=== PATIENT | male | born 1945 | race Caucasian/White ===

== ENCOUNTER 2017-12-30 11:37 | Emergency (ER) | payer MEDICARE, BC ==
[~2017-12-30] VITALS: Ht 647.4 cm; Wt 94.0 kg
[~2017-12-30 11:37] MED LIST: ALFU10TA10 PO; ASPI81TA52 PO; ATOR10TA87 PO; CARV-50 PO; CELE-193 PO; CHOL200035 PO; CLOP75TA33 PO; DONE-46 PO; DULO60CA34 PO; ESCI10TA54 PO; FLO0.4C PO; GLIM1TAB46 PO; ISOS60TA4 PO; LACT1CAP65 PO; LISI-232 PO; METF500T PO; OMEG1CAP54 PO
[2017-12-30] MEDS ORDERED: ondansetron/PF 4mg/2ml inj IV ONE (13:45)
[2017-12-30] MEDS ORDERED: normal saline 1000ML IV soln IVB ONE (13:45)
[2017-12-30 14:04] LABS: BASOPHILS # (AUTO) 0.1 X10'3 (0-0.2); BASOPHILS % (AUTO) 0.5 % (0-1); EOSINOPHILS % (AUTO) 0.2 % (0-6); HEMATOCRIT 43.9 % (42.0-52.0); HEMOGLOBIN 14.8 g/dl (14.0-17.9); LYMPHOCYTES # (AUTO) 1.4 X10'3 (1.1-4.8); LYMPHOCYTES % (AUTO) 12.3 % (21-51); MEAN CORPUSCULAR HEMOGLOBIN 29.6 PG (27.0-31.0); MEAN CORPUSCULAR HGB CONC 33.7 % (33.0-36.5); MEAN CORPUSCULAR VOLUME 87.7 FL (78-98); MEAN PLATELET VOLUME 11.9 FL (7.4-10.4); MONOCYTES # (AUTO) 0.4 X10'3 (0-0.9); MONOCYTES % (AUTO) 3.4 % (2-12); NEUTROPHILS # (AUTO) 9.4 X10'3 (1.8-7.7); NEUTROPHILS % (AUTO) 83.6 % (42-75); PLATELET COUNT 113 X10'3 (140-440); RED CELL DISTRIBUTION WIDTH 12.1 % (11.5-14.5); WHITE BLOOD COUNT 11.2 X10'3 (4.5-11.0)
[2017-12-30 14:16] LABS: LARGE PLATELETS FEW; PLATELET ESTIMATE DECREASED
[2017-12-30 14:18] LABS: ALANINE AMINOTRANSFERASE 18 U/L (12-78); ALBUMIN 3.4 G/DL (3.4-5.0); ALBUMIN/GLOBULIN RATIO 0.8 (1.1-1.5); ALKALINE PHOSPHATASE 100 IU/L (46-116); ANION GAP 11 (8-16); ASPARTATE AMINO TRANSFERASE 10 U/L (10-37); BILIRUBIN,TOTAL 0.6 MG/DL (0.1-1.0); BLOOD UREA NITROGEN 40 MG/DL (7-18); CALCIUM 10.5 MG/DL (8.5-10.1); CHLORIDE 96 MMOL/L (99-107); CREATININE 1.74 MG/DL (0.60-1.10); GLUCOSE 375 MG/DL (70-104); POTASSIUM 4.1 MMOL/L (3.5-5.1); SODIUM 135 MMOL/L (135-145); TOTAL CARBON DIOXIDE 28.2 MMOL/L (24-32); TOTAL PROTEIN 7.5 G/DL (6.4-8.2); eGFR 39 ML/MIN
[2017-12-30 14:21] LABS: TROPONIN I < 0.04 NG/ML (0.0-0.05)
[2017-12-30] MEDS ORDERED: insulin regular, human 10 units/0.1 ml syringe IV ONE (14:25)
[2017-12-30 15:36] LABS: CLARITY,URINE SLIGHTLY CLOUDY (Clear); COLOR,URINE YELLOW (Yellow); GLUCOSE, URINE >=1000 mg/dl (Neg); KETONES,URINE 15 mg/dl (Neg); LEUKOCYTE ESTERASE ,URINE NEGATIVE (Neg); NITRITES, URINE NEGATIVE (Neg); OCCULT BLOOD,URINE MODERATE (Neg); PROTEIN,URINE 100 mg/dl (Neg); UROBILINOGEN,URINE 0.2 E.U/dL (0.2-1.0)
[2017-12-30 15:51] LABS: UA COLLECTION TYPE STRAIGHT CATH
[2017-12-30 15:56] LABS: BACTERIA,URINE NONE SEEN /HPF (Neg); SQUAMOUS EPITHELIAL CELL,UR NONE SEEN /LPF (FEW)
[2017-12-30 15:57] LABS: AMORPHOUS URATES 2+
[2017-12-30 16:16] VITALS: BP 165/74
== END 2017-12-30 16:19 | disposition home or self-care (01) ==
LOC: ER 11:38
DX: E11.65 Type 2 diabetes mellitus with hyperglycemia (principal); I10 Essential (primary) hypertension; Z90.89 Acquired absence of other organs; Z79.82 Long term (current) use of aspirin; Z79.84 Long term (current) use of oral hypoglycemic drugs; Z79.899 Other long term (current) drug therapy
CPT/HCPCS: 36415; 80053; 81001; 82948; 84484; 85025; 87088; 93005; 96361; 96374; 96375; 99285; A4353; J1815; J2405; J7030

== ENCOUNTER 2019-05-26 07:02 | Day surgery (SDC) | payer MEDICARE, BC ==
[2019-05-25 14:15] LABS: BASOPHILS % (AUTO) 0.5 % (0-1); EOSINOPHILS # (AUTO) 0.1 X10'3 (0-0.9); EOSINOPHILS % (AUTO) 1.3 % (0-6); HEMATOCRIT 41.2 % (42.0-52.0); HEMOGLOBIN 13.7 g/dl (14.0-17.9); LYMPHOCYTES % (AUTO) 14.1 % (21-51); MEAN CORPUSCULAR HGB CONC 33.2 g/dL (33.0-36.5); MEAN CORPUSCULAR VOLUME 90.3 FL (78-98); MEAN PLATELET VOLUME 10.6 FL (7.4-10.4); MONOCYTES # (AUTO) 0.3 X10'3 (0-0.9); MONOCYTES % (AUTO) 4.3 % (2-12); NEUTROPHILS # (AUTO) 5.9 X10'3 (1.8-7.7); NEUTROPHILS % (AUTO) 79.8 % (42-75); PLATELET COUNT 131 X10'3 (140-440); RED BLOOD COUNT 4.56 X10'6 (4.70-6.10); RED CELL DISTRIBUTION WIDTH 14.4 % (11.5-14.5); WHITE BLOOD COUNT 7.4 X10'3 (4.5-11.0)
[2019-05-25 14:28] LABS: PARTIAL THROMBOPLASTIN TIME 24 SECONDS (22-32)
[2019-05-25 14:32] LABS: ALBUMIN 3.4 G/DL (3.4-5.0); ANION GAP 6 (8-16); BLOOD UREA NITROGEN 35 MG/DL (7-18); BUN/CREATININE RATIO 19.3 (5.4-32.0); CALCIUM 9.7 MG/DL (8.5-10.1); CHLORIDE 101 MMOL/L (99-107); CREATININE 1.81 MG/DL (0.60-1.10); GLUCOSE 331 MG/DL (70-104); POTASSIUM 4.1 MMOL/L (3.5-5.1); SODIUM 138 MMOL/L (135-145); TOTAL CARBON DIOXIDE 30.6 MMOL/L (24-32); eGFR 37 ML/MIN
[~2019-05-26] VITALS: Ht 182.9 cm; Wt 96.7 kg
[2019-05-26] VITALS (13 sets, daily range): BP systolic 143–185; BP diastolic 49–95
[~2019-05-26 07:02] MED LIST changes: +GLIM1TAB3 PO; -GLIM1TAB46 PO
[2019-05-26] MEDS ORDERED: diphenhydrAMINE 25mg capsule PO PRN (07:30)
[2019-05-26] MEDS ORDERED: normal saline 1,000 ML IV SCH (07:30)
[2019-05-26] MEDS ORDERED: LORazepam 0.5 MG tablet PO PRN (07:30)
[2019-05-26] MEDS ORDERED: LIDOcaine/PRILOcaine 5gm cream TP ONE (07:40)
[2019-05-26] MEDS ORDERED: AMLO5TAB PO (07:50)
[2019-05-26] MEDS ORDERED: PRIM50TA3 PO (07:50)
[2019-05-26] MEDS ORDERED: BUPR-83 PO (07:50)
[2019-05-26] MEDS ORDERED: HYDR12.55 PO (07:50)
[2019-05-26] MEDS ORDERED: ALLO300T8 PEG (07:50)
[2019-05-26] MEDS ORDERED: LISI40TA4 PO (07:50)
[2019-05-26] MEDS ORDERED: sodium bicarbonate (8.4%) inj. 100 ML in dextrose 5%-water 1,000 ML IV ONE ×2 (08:30→13:20)
[2019-05-26] MEDS ORDERED: nitroGLYCERIN-Tridil 50MG/D5W 250 ML IV ONE (09:40)
[2019-05-26] MEDS ORDERED: fentaNYL/PF 50MCG/1 ML 2ML syringe ONE (09:40)
[2019-05-26] MEDS ORDERED: verapamil 2.5 mg/ml inj IV ONE (09:40)
[2019-05-26] MEDS ORDERED: midazolam 2 mg/2 ml injection ONE (09:40)
[2019-05-26] MEDS ORDERED: LIDOcaine 1% (10mg/ml)w/preservative injection 20ml MDV ONE (09:40)
[2019-05-26] MEDS ORDERED: iohexol 350 MG/ML 50ML vial IV ONE (09:41)
[2019-05-26] MEDS ORDERED: heparin 1,000unit/ml 10ml vial 10 ML ONE (09:41)
[2019-05-26] MEDS ORDERED: iohexol 350MG/ML 100ml bottle IV ONE ×2 (09:41→10:56)
[2019-05-26] MEDS ORDERED: heparin 1,000 UNITS/NS 500ml 500 ML ONE (10:56)
[2019-05-26] MEDS ORDERED: PRAV20TA4 (11:54)
[2019-05-26] MEDS ORDERED: ACETYLCYSTEINE 200 MG/1 ML 4 ML ORAL SOLUTION PO SCH ×2 (12:07→20:00)
--- NOTE | 2019-05-26 14:25 | NUR ---
mended hearts at bedside.
[2019-05-26] MEDS ORDERED: MALTODEXTRIN/FRUCTOSE 0.68 KCAL/ML LIQUID 296ML BOTTLE PO ONE (15:10)
--- NOTE | 2019-05-26 15:55 | NUR ---
Received report from TYRA Lion from [facility]. Patient recovering from heart cath. Will await patient arrival to the ACCE unit.
[2019-05-26 16:01] LABS: ISTAT HGB ART 12.6 g/dl (14.0-18.0); ISTAT Hct ART 37 %PCV (42-52); ISTAT Hct MIX 37 %PCV (42-52); ISTAT O2 SATURATION ARTERIAL 96 % (95-98); ISTAT O2 SATURATION MIX VENOUS 70 % (60-80); ISTAT SOURCE ART; ISTAT SOURCE MIX
--- NOTE | 2019-05-26 16:10 | NUR ---
Senior [employer] SpecialistDanni at bedside. Pt being given information that he will need to return on Friday for outpatient surgery and that if any symptoms arise to come into the ED. Pt verbalized understanding.
--- NOTE | 2019-05-26 18:17 | NUR ---
Problems reprioritized. Patient report given, questions answered & plan of care reviewed with Elvira MARY.
[2019-05-26 19:10] LABS: ABG BASE EXCESS -0.8 mmol/L (-2.0-3.0); ABG HCO3 22.9 mmol/L (22.0-26.0); ABG OXYGEN SATURATION 95.4 % (95-98); ABG PCO2 (T) 34.9 mmHg (35.0-45.0); ABG PH (T) 7.435 (7.350-7.450); ABG PO2 (T) 73.1 mmHg (83-108); ALLEN'S TEST Positive; FCOHb 0.6 % (0.5-1.5); FMetHb 0.1 % (0.3-1.12); FO2Hb 94.7 % (94-100); RESPIRATORY RATE (OBSERVED) 14 b/min; TOTAL HEMOGLOBIN 13.5 G/dl (14.0-17.9)
[2019-05-31] MEDS ORDERED: MALTODEXTRIN/FRUCTOSE 0.68 KCAL/ML LIQUID 296ML BOTTLE PO ONE (05:30)
[2019-05-31] MEDS ORDERED: insulin regular, human 100 UNIT in normal saline 100ml IV soln 100 ML IV SCH ×2 (05:30)
[2019-05-31] MEDS ORDERED: MESSAGE TO NURSING PO ONE ×5 (05:30→10:00)
[2019-05-31] MEDS ORDERED: gabapentin 400mg capsule PO ONE (05:30)
[2019-05-31] MEDS ORDERED: insulin glargine (Lantus) pen - multi-dose SQ PRN (05:30)
[2019-05-31] MEDS ORDERED: potassium Cl 20mEq/100mL bag 100 ML IV PRN (05:30)
[2019-05-31] MEDS ORDERED: metoprolol tartrate 12.5mg (1/2 tablet) PO SCH (05:30)
[2019-05-31] MEDS ORDERED: magnesium 2GM in 50ml NS 50 ML IV PRN (05:30)
[2019-05-31] MEDS ORDERED: magnesium 4gm in 100ml NS 100 ML IV PRN (05:30)
[2019-05-31] MEDS ORDERED: potassium Cl 20 mEq SR tablet PO PRN (05:30)
[2019-05-31] MEDS ORDERED: dextrose 50%-water 50ml dispensing syringe IV PRN (05:30)
[2019-05-31] MEDS ORDERED: mupirocin 2% nasal ointment 1gm UD NS SCH (20:00)
== END 2019-05-26 19:51 | disposition home or self-care (01) ==
LOC: SSTAY O 07:02
PROVIDERS: ATTEND Internal Medicine Cardiovascular Disease
DX: R94.39 Abnormal result of other cardiovascular function study (principal); I25.10 Atherosclerotic heart disease of native coronary artery without angina pectoris; I10 Essential (primary) hypertension; E11.9 Type 2 diabetes mellitus without complications; G47.33 Obstructive sleep apnea (adult) (pediatric); E78.49 Other hyperlipidemia; M19.90 Unspecified osteoarthritis, unspecified site; E66.9 Obesity, unspecified; Z68.28 Body mass index [BMI] 28.0-28.9, adult; Z79.84 Long term (current) use of oral hypoglycemic drugs; Z79.01 Long term (current) use of anticoagulants; Z79.82 Long term (current) use of aspirin; Z95.5 Presence of coronary angioplasty implant and graft; Z79.899 Other long term (current) drug therapy; Z86.73 Personal history of transient ischemic attack (TIA), and cerebral infarction without residual deficits; Z98.890 Other specified postprocedural states; Z87.891 Personal history of nicotine dependence; Z83.3 Family history of diabetes mellitus; Z82.3 Family history of stroke; Z80.42 Family history of malignant neoplasm of prostate
CPT/HCPCS: 36415; 71046; 80048; 82803; 82948; 85014; 85018; 85025; 85610; 85730; 93005; 93460; 94010; 99152; 99153; C1769; C1894; J1644; J2001; J2250; J3010; Q0163; Q9967; 36600; 93880; 93971; A5120; A6258; C1760; J3490; J7030

== ENCOUNTER 2019-05-31 05:36 | Inpatient (IN) | payer MEDICARE, BC ==
[2019-05-28 15:41] LABS: BASOPHILS % (AUTO) 0.5 % (0-1); EOSINOPHILS # (AUTO) 0.1 X10'3 (0-0.9); LYMPHOCYTES # (AUTO) 1.2 X10'3 (1.1-4.8); LYMPHOCYTES % (AUTO) 16.2 % (21-51); MEAN CORPUSCULAR HEMOGLOBIN 30.2 PG (27.0-31.0); MEAN CORPUSCULAR HGB CONC 33.1 g/dL (33.0-36.5); MEAN PLATELET VOLUME 10.7 FL (7.4-10.4); MONOCYTES # (AUTO) 0.4 X10'3 (0-0.9); NEUTROPHILS # (AUTO) 5.8 X10'3 (1.8-7.7); NEUTROPHILS % (AUTO) 77.3 % (42-75); PRE OP HEMATOCRIT 41.2 % (42.0-52.0); PRE OP HEMOGLOBIN 13.7 g/dL (14.0-17.9); PRE OP PLATELET COUNT 136 X10'3 (140-440); RED BLOOD COUNT 4.53 X10'6 (4.70-6.10); RED CELL DISTRIBUTION WIDTH 14.6 % (11.5-14.5)
[2019-05-28 15:55] LABS: PRE OP PROTIME 10.2 SECONDS (9.0-12.0)
[2019-05-28 15:56] LABS: ALBUMIN 3.3 G/DL (3.4-5.0); ALBUMIN/GLOBULIN RATIO 0.9 (1.1-1.5); ALKALINE PHOSPHATASE 93 IU/L (46-116); BLOOD UREA NITROGEN 30 MG/DL (7-18); BUN/CREATININE RATIO 14.9 (5.4-32.0); CALCIUM 9.1 MG/DL (8.5-10.1); CHLORIDE 101 MMOL/L (99-107); CREATININE 2.02 MG/DL (0.60-1.10); PRE OP ALT 19 U/L (30-65); PRE OP ANION GAP 14 (8-16); PRE OP AST 11 U/L (10-37); PRE OP BILIRUB, TOTAL 0.4 MG/DL (0.0-1.0); PRE OP POTASSIUM 3.4 MMOL/L (3.4-5.1); PRE OP SODIUM 141 MMOL/L (135-145); TOTAL CARBON DIOXIDE 26.2 MMOL/L (24-32); TOTAL PROTEIN 6.8 G/DL (6.4-8.2); eGFR 32 ML/MIN
[2019-05-28 16:01] LABS: LARGE PLATELETS FEW; PLATELET ESTIMATE DECREASED
[2019-05-28 16:03] LABS: HEMOGLOBIN A1C 7.2 % (4.5-6.2)
[2019-05-28 16:04] LABS: PRE OP GLUCOSE 367 MG/DL (70-104)
[2019-05-31] VITALS (18 sets, daily range): BP systolic 101–133; BP diastolic 51–78
[~2019-05-31] VITALS: Ht 182.9 cm; Wt 103.5 kg
[~2019-05-31 05:36] MED LIST changes: +ALLO300T8 PEG; +AMLO5TAB PO; -ATOR10TA87 PO; +BUPR-83 PO; -CELE-193 PO; -CHOL200035 PO; +DOCUMENT DATE & TIME OF BETA-BLOCKER PO ONE; -DONE-46 PO; -ESCI10TA54 PO; -FLO0.4C PO; +HYDR12.55 PO; -LACT1CAP65 PO; -LISI-232 PO; +LISI40TA4 PO; +MALTODEXTRIN/FRUCTOSE 0.68 KCAL/ML LIQUID 296ML BOTTLE PO ONE; -OMEG1CAP54 PO; +PRAV20TA4; +PRIM50TA3 PO; +ROPIVAcaine 0.5% (5mg/ml) 30ml vial ONE; +albumin (human) 25% 100 ML IV solution IV ONE; +aminocaproic acid 250 MG/1 ML inj. ONE; +cefazolin/dext.iso 2gm/100ml 100 ML IV ONE; +famotidine 10mg tablet PO ONE; +gabapentin 300mg capsule PO ONE; +heparin 10,000 units/1 ML INJ ONE; +insulin regular, human 100 UNIT in normal saline 100ml IV soln 99 ML IV ONE; +metoprolol tartrate 12.5mg (1/2 tablet) PO ONE; +mupirocin 2% nasal ointment 1gm UD NS ONE; +ringers solution, lacted 1,000 ML IV SCH; +vancomycin inj 1,500 MG in normal saline 300ml IV soln IV ONE
[2019-05-31] MEDS ORDERED: LORazepam 2 mg/ml vial IV PRN (06:50)
[2019-05-31] MEDS ORDERED: MIDAZolam 1mg/ml 10ml vial ONE (06:53)
[2019-05-31] MEDS ORDERED: SUFENTANIL CITRATE 50 MCG/ML 2ml ampule IV ONE (06:53)
[2019-05-31] MEDS ORDERED: nitroGLYCERIN in D5W 50mg/250ml (Tridil) infusion IV ONE (06:55)
[2019-05-31] MEDS ORDERED: protamine sulf. 10mg/ml inj. IV ONE (06:55)
[2019-05-31] MEDS ORDERED: phenylephrine 10mg/ml inj. ONE (06:55)
[2019-05-31] MEDS ORDERED: LIDOcaine 2% (20mg/ml) 5ml vial ONE (06:55)
[2019-05-31] MEDS ORDERED: propofol inj 20 ML IV ONE (06:55)
[2019-05-31] MEDS ORDERED: DOPamine/D5W 400mg/250ml bag IV ONE (06:55)
[2019-05-31] MEDS ORDERED: sevoflurane 250ml liquid IH ONE (06:55)
[2019-05-31] MEDS ORDERED: aminocaproic acid 250 MG/1 ML inj. ONE (06:55)
[2019-05-31] MEDS ORDERED: pancuronium br 1mg/ml inj IV ONE (06:56)
[2019-05-31] MEDS ORDERED: papaverine 30 mg/ml 2ml inj. IA ONE (07:00)
[2019-05-31] MEDS ORDERED: heparin 10,000 units/1 ML INJ IR ONE (07:00)
[2019-05-31 07:50] LABS: ABG BASE EXCESS -2.4 mmol/L (-2.0-3.0); ABG HCO3 22.1 mmol/L (22.0-26.0); ABG OXYGEN SATURATION 99.5 % (95-98); ABG PCO2 36.8 mmHg (35.0-45.0); ABG PH 7.396 (7.350-7.450); ABG PO2 282.5 mmHg (60.0-100.0); CL (ABG) 105 mmol/L (99-107); FCOHb 0.7 % (0.5-1.5); FMetHb 0.1 % (0.3-1.12); FO2Hb 98.7 % (94-100); GLUCOSE (ABG) 260 mg/dl (70-104); IONIZED CA (ABG) 1.13 mmol/L (1.03-1.32); K (ABG) 3.4 mmol/L (3.3-5.1); NA (ABG) 135 mmol/L (135-145); TOTAL HEMOGLOBIN 11.1 G/dl (14.0-17.9)
[2019-05-31] MEDS ORDERED: albumin (Human) 5% 250ml 250 ML IV ONE ×2 (08:00→08:31)
[2019-05-31] MEDS ORDERED: ePHEDrine 50MG/ML INJ. ONE (08:21)
[2019-05-31 09:06] LABS: ABG BASE EXCESS -0.3 mmol/L (-2.0-3.0); ABG HCO3 24.6 mmol/L (22.0-26.0); ABG OXYGEN SATURATION 99.2 % (95-98); ABG PCO2 41.4 mmHg (35.0-45.0); ABG PH 7.392 (7.350-7.450); ABG PO2 259.5 mmHg (60.0-100.0); CL (ABG) 103 mmol/L (99-107); FCOHb 0.5 % (0.5-1.5); FMetHb 0.5 % (0.3-1.12); FO2Hb 98.2 % (94-100); GLUCOSE (ABG) 152 mg/dl (70-104); IONIZED CA (ABG) 1.06 mmol/L (1.03-1.32); K (ABG) 3.9 mmol/L (3.3-5.1); NA (ABG) 135 mmol/L (135-145); TOTAL HEMOGLOBIN 8.5 G/dl (14.0-17.9)
[2019-05-31 09:06] LABS: ACT @ 1.70 U 289 SEC (193-297); ACT @ 2.84 U 398 SEC (260-420); BASELINE ACT 142 SEC (101-148); PATIENT WEIGHT 97.0k KG
[2019-05-31 09:25] LABS: ABG BASE EXCESS VENOUS -1.3 mmol/L; ABG HCO3 VENOUS 23.8 mmol/L; ABG PCO2 VENOUS 41.7 mmHg; ABG PO2 VENOUS 48.5 mmHg; CL (ABG) 103 mmol/L (99-107); FCOHb VENOUS 0.9 %; FHHb VENOUS 13.1 %; FMetHb VENOUS 0.4 %; FO2Hb VENOUS 85.6 %; GLUCOSE (ABG) 138 mg/dl (70-104); K (ABG) 3.9 mmol/L (3.3-5.1); NA (ABG) 135 mmol/L (135-145); TOTAL HEMOGLOBIN 8.5 G/dl (14.0-17.9)
[2019-05-31 10:01] LABS: ABG BASE EXCESS 0.6 mmol/L (-2.0-3.0); ABG HCO3 24.2 mmol/L (22.0-26.0); ABG OXYGEN SATURATION 99.5 % (95-98); ABG PCO2 34.7 mmHg (35.0-45.0); ABG PH 7.462 (7.350-7.450); ABG PO2 365.4 mmHg (60.0-100.0); CL (ABG) 104 mmol/L (99-107); FMetHb 0.3 % (0.3-1.12); FO2Hb 98.2 % (94-100); GLUCOSE (ABG) 111 mg/dl (70-104); K (ABG) 4.1 mmol/L (3.3-5.1); NA (ABG) 135 mmol/L (135-145); TOTAL HEMOGLOBIN 8.1 G/dl (14.0-17.9)
[2019-05-31 10:25] LABS: ABG BASE EXCESS VENOUS 0.2 mmol/L; ABG HCO3 VENOUS 24.1 mmol/L; ABG PCO2 VENOUS 36.2 mmHg; ABG PO2 VENOUS 39.9 mmHg; CL (ABG) 104 mmol/L (99-107); FCOHb VENOUS 1.3 %; FHHb VENOUS 19.2 %; FMetHb VENOUS 0.2 %; FO2Hb VENOUS 79.3 %; GLUCOSE (ABG) 103 mg/dl (70-104); IONIZED CA (ABG) 1.24 mmol/L (1.03-1.32); K (ABG) 3.8 mmol/L (3.3-5.1); NA (ABG) 135 mmol/L (135-145)
[2019-05-31 10:30] LABS: ACTIVATED CLOTTING TIME 143 SEC (101-148)
[2019-05-31] MEDS ORDERED: metoclopramide 5 mg/ml inj IV PRN (11:00)
[2019-05-31] MEDS ORDERED: potassium Cl 20 mEq SR tablet PO PRN (11:00)
[2019-05-31] MEDS ORDERED: dextrose 50%-water 50ml dispensing syringe IV PRN (11:00)
[2019-05-31] MEDS ORDERED: sodium phosphate inj. 30 MMOL in dextrose 5%-water 250 ML IV PRN (11:00)
[2019-05-31] MEDS ORDERED: Neutra Phos packet PO PRN (11:00)
[2019-05-31] MEDS ORDERED: magnesium 4gm in 100ml NS 100 ML IV PRN (11:00)
[2019-05-31] MEDS ORDERED: pantoprazole 40 MG vial IV ONE (11:00)
[2019-05-31] MEDS ORDERED: niCARDipine-NS 40mg/200ml IVPB 200 ML IV PRN (11:00)
[2019-05-31] MEDS ORDERED: albumin (Human) 5% 250ml 250 ML IV PRN (11:00)
[2019-05-31] MEDS ORDERED: HYDROcodone/acetaminophen 10/325mg tab PO PRN ×2 (11:00)
[2019-05-31] MEDS ORDERED: morphine 4 MG/ML inj SYRINge IV PRN ×2 (11:00)
[2019-05-31] MEDS ORDERED: nitroGLYCERIN-Tridil 50MG/D5W 250 ML IV PRN (11:00)
[2019-05-31] MEDS ORDERED: insulin regular, human inj. 100 UNITS in normal saline 100ml IV soln 100 ML IV SCH ×2 (11:00)
[2019-05-31] MEDS ORDERED: normal saline 250ml IV soln 250 ML IV PRN (11:00)
[2019-05-31] MEDS ORDERED: sodium chloride 0.45% 1,000 ML IV SCH (11:00)
[2019-05-31] MEDS ORDERED: magnesium 2GM in 50ml NS 50 ML IV PRN (11:00)
[2019-05-31] MEDS ORDERED: DOPamine 400mg/D5W 250ml 250 ML IV PRN (11:00)
[2019-05-31] MEDS ORDERED: sodium phosphate inj. 15 MMOL in dextrose 5%-water 150 ML IV PRN (11:00)
[2019-05-31] MEDS ORDERED: ondansetron/PF 4mg/2ml inj IV PRN (11:00)
[2019-05-31] MEDS ORDERED: magnesium hydroxide 30ml (MOM) UD suspension PO PRN (11:00)
[2019-05-31] MEDS ORDERED: acetaminophen 325mg tablet PO PRN ×2 (11:00)
--- NOTE | 2019-05-31 11:10 | NUR ---
Received to room 2040, accompanied by Dr. Martinez and surgical crew. Assumed care of pt. with Nery Ashley RN. Placed on ventilator, to cooker process cheese, arterial line and PA line pressure monitored. Chest tubes to suction at 20 cm. Severino cath to gravity drainage. Dressings are dry and intact. See assessment record. All vasoactive drugs are infusing via central line.
--- NOTE | 2019-05-31 11:15 | NUR ---
DM/CABG consults: Pt to OR today for cardiac revascularization. Hx DM A1C 7.2. Will need DM/CABG eds once stable post-op prior to d/c. Addendum: 05/31/19 at [address] Amended: Links added.
[2019-05-31 11:33] LABS: BASOPHILS % (AUTO) 0.5 % (0-1); EOSINOPHILS # (AUTO) 0.1 X10'3 (0-0.9); EOSINOPHILS % (AUTO) 1.1 % (0-6); HEMOGLOBIN 10.2 g/dl (14.0-17.9); LYMPHOCYTES # (AUTO) 1.2 X10'3 (1.1-4.8); LYMPHOCYTES % (AUTO) 13.3 % (21-51); MEAN CORPUSCULAR HEMOGLOBIN 30.8 PG (27.0-31.0); MEAN CORPUSCULAR HGB CONC 34.1 g/dL (33.0-36.5); MEAN CORPUSCULAR VOLUME 90.4 FL (78-98); MONOCYTES # (AUTO) 0.4 X10'3 (0-0.9); MONOCYTES % (AUTO) 4.2 % (2-12); NEUTROPHILS # (AUTO) 7.3 X10'3 (1.8-7.7); NEUTROPHILS % (AUTO) 80.9 % (42-75); PLATELET COUNT 86 X10'3 (140-440); RED BLOOD COUNT 3.32 X10'6 (4.70-6.10); RED CELL DISTRIBUTION WIDTH 13.9 % (11.5-14.5)
[2019-05-31 11:46] LABS: PARTIAL THROMBOPLASTIN TIME 58 SECONDS (22-32)
[2019-05-31 11:46] LABS: ABG BASE EXCESS -2.3 mmol/L (-2.0-3.0); ABG HCO3 21.2 mmol/L (22.0-26.0); ABG OXYGEN SATURATION 98.5 % (95-98); ABG PCO2 (T) 29.9 mmHg (35.0-45.0); ABG PH (T) 7.463 (7.350-7.450); ABG PO2 (T) 141.1 mmHg (83-108); FCOHb 0.3 % (0.5-1.5); FLOW 60 L/min; FMetHb 0.2 % (0.3-1.12); MINUTE VOLUME 9 L/min; PATIENT TEMPERATURE 35.2; PEEP 5 cm H2O; RESPIRATORY RATE 14 b/min; RESPIRATORY RATE (OBSERVED) 14 b/min; TIDAL VOLUME 650 mL; TOTAL HEMOGLOBIN 11.3 G/dl (14.0-17.9)
[2019-05-31 11:48] LABS: ALANINE AMINOTRANSFERASE 19 U/L (12-78); ALBUMIN/GLOBULIN RATIO 1.4 (1.1-1.5); ALKALINE PHOSPHATASE 59 IU/L (46-116); ANION GAP 6 (8-16); ASPARTATE AMINO TRANSFERASE 24 U/L (10-37); BILIRUBIN,TOTAL 0.6 MG/DL (0.1-1.0); BLOOD UREA NITROGEN 25 MG/DL (7-18); BUN/CREATININE RATIO 18.4 (5.4-32.0); CALCIUM 8.4 MG/DL (8.5-10.1); CHLORIDE 108 MMOL/L (99-107); CREATININE 1.36 MG/DL (0.60-1.10); GLUCOSE 107 MG/DL (70-104); POTASSIUM 3.7 MMOL/L (3.5-5.1); SODIUM 141 MMOL/L (135-145); TOTAL CARBON DIOXIDE 26.6 MMOL/L (24-32); TOTAL PROTEIN 5.1 G/DL (6.4-8.2); eGFR 51 ML/MIN
[2019-05-31 11:53] LABS: MAGNESIUM 3.3 MG/DL (1.5-2.4)
[2019-05-31 11:54] LABS: PHOSPHORUS 0.9 MG/DL (2.3-4.5)
[2019-05-31] MEDS: gabapentin 300mg capsule PO SCH ×2 (12:41→20:23)
[2019-05-31] MEDS: potassium Cl 20mEq/100mL bag 100 ML IV PRN ×2 (12:42→15:03)
[2019-05-31] MEDS: insulin Lispro (HumaLOG) vial - multi-dose SQ SCH ×2 (13:00→18:00)
[2019-05-31 13:57] LABS: HEMATOCRIT 27.5 % (42.0-52.0); HEMOGLOBIN 9.2 g/dl (14.0-17.9); MEAN CORPUSCULAR HEMOGLOBIN 30.5 PG (27.0-31.0); MEAN CORPUSCULAR HGB CONC 33.6 g/dL (33.0-36.5); MEAN CORPUSCULAR VOLUME 90.8 FL (78-98); MEAN PLATELET VOLUME 10.1 FL (7.4-10.4); PLATELET COUNT 109 X10'3 (140-440); RED BLOOD COUNT 3.03 X10'6 (4.70-6.10); RED CELL DISTRIBUTION WIDTH 14.3 % (11.5-14.5)
--- NOTE | 2019-05-31 14:06 | NUR ---
Hemogram obtained as pt. has had approx. 900cc out of CT. Calling Dr. Martinez to notify him.
--- NOTE | 2019-05-31 14:45 | NUR ---
Dr. Martinez updated with CT output which is now 1100. VSS. 2nd platelets infused now. Dr. Martinez stated to order and give DDAVP and perform a platelet lab test.
[2019-05-31] MEDS ORDERED: desmopressin 4 MCG/1 ML amp IV ONE (15:05)
[2019-05-31] MEDS ORDERED: desmopressin inj. 30 MCG in normal saline 100ml IV soln 92.5 ML IV ONE (15:25)
[2019-05-31] MEDS: ceFAZolin 1GM/D5W- ADD-VANTAGE 50 ML IV SCH (15:28)
[2019-05-31 17:35] LABS: BASOPHILS % (AUTO) 0.2 % (0-1); EOSINOPHILS % (AUTO) 0.1 % (0-6); HEMATOCRIT 23.5 % (42.0-52.0); LYMPHOCYTES # (AUTO) 0.5 X10'3 (1.1-4.8); LYMPHOCYTES % (AUTO) 5.1 % (21-51); MEAN CORPUSCULAR HEMOGLOBIN 30.4 PG (27.0-31.0); MEAN CORPUSCULAR HGB CONC 34.1 g/dL (33.0-36.5); MEAN CORPUSCULAR VOLUME 89.2 FL (78-98); MEAN PLATELET VOLUME 9.6 FL (7.4-10.4); MONOCYTES # (AUTO) 0.3 X10'3 (0-0.9); MONOCYTES % (AUTO) 2.9 % (2-12); NEUTROPHILS # (AUTO) 8.1 X10'3 (1.8-7.7); NEUTROPHILS % (AUTO) 91.7 % (42-75); PLATELET COUNT 131 X10'3 (140-440); RED BLOOD COUNT 2.63 X10'6 (4.70-6.10); RED CELL DISTRIBUTION WIDTH 14.3 % (11.5-14.5); WHITE BLOOD COUNT 8.9 X10'3 (4.5-11.0)
[2019-05-31 17:44] LABS: ALBUMIN 2.8 G/DL (3.4-5.0); ANION GAP 11 (8-16); BLOOD UREA NITROGEN 25 MG/DL (7-18); BUN/CREATININE RATIO 17.7 (5.4-32.0); CALCIUM 7.9 MG/DL (8.5-10.1); CHLORIDE 109 MMOL/L (99-107); CREATININE 1.41 MG/DL (0.60-1.10); GLUCOSE 203 MG/DL (70-104); MAGNESIUM 2.3 MG/DL (1.5-2.4); PHOSPHORUS 2.8 MG/DL (2.3-4.5); SODIUM 142 MMOL/L (135-145); TOTAL CARBON DIOXIDE 21.7 MMOL/L (24-32); eGFR 49 ML/MIN
[2019-05-31 17:45] LABS: POTASSIUM 4.3 MMOL/L (3.5-5.1)
[2019-05-31 18:00] LABS: ABG BASE EXCESS -1.4 mmol/L (-2.0-3.0); ABG HCO3 21.1 mmol/L (22.0-26.0); ABG OXYGEN SATURATION 98.5 % (95-98); ABG PCO2 (T) 28.1 mmHg (35.0-45.0); ABG PH (T) 7.495 (7.350-7.450); ABG PO2 (T) 150.1 mmHg (83-108); ALLEN'S TEST Positive; FCOHb 0.3 % (0.5-1.5); FMetHb 0.1 % (0.3-1.12); FO2Hb 98.1 % (94-100); MINUTE VOLUME 14 L/min; PATIENT TEMPERATURE 37.3; PEEP 5 cm H2O; RESPIRATORY RATE (OBSERVED) 26 b/min; TOTAL HEMOGLOBIN 8.9 G/dl (14.0-17.9)
--- NOTE | 2019-05-31 18:15 | NUR ---
Patient in room ICU 2040. I have received report from Nery and Iman RNs, and had the opportunity to ask questions and assume patient care. Patient resting in bed, extubated at 1810 and currently saturating at 95% on 4L NC. Vitals all WNL at this time, nitro infusing at 1mcg/kg/min through central line. No other vasoactive drugs infusing at this time. Mediastinal CT in place, draining well. Patient sleepy, easily arousable to name. Follows commands. Will continue to monitor patient closely.
[2019-05-31] MEDS: VANCOMYCIN 1gm/H2O 200ml PB 200 ML IV SCH (20:22)
[2019-05-31] MEDS: duloxetine 30mg CAPSULE.DR PO SCH (20:23)
[2019-05-31] MEDS: mupirocin 2% nasal ointment 1gm UD NS SCH (20:23)
[2019-05-31] MEDS: tamsulosin 0.4mg capsule PO SCH (20:23)
[2019-05-31] MEDS: docusate sod 100mg capsule PO SCH (20:23)
[2019-06-01] VITALS (32 sets, daily range): BP systolic 99–175; BP diastolic 49–89
[2019-06-01] MEDS: ceFAZolin 1GM/D5W- ADD-VANTAGE 50 ML IV SCH ×3 (00:03→16:01)
[2019-06-01 04:55] LABS: BASOPHILS % (AUTO) 0.1 % (0-1); EOSINOPHILS % (AUTO) 0 % (0-6); HEMATOCRIT 24.7 % (42.0-52.0); HEMOGLOBIN 8.3 g/dl (14.0-17.9); LYMPHOCYTES # (AUTO) 0.5 X10'3 (1.1-4.8); LYMPHOCYTES % (AUTO) 5.1 % (21-51); MEAN CORPUSCULAR HEMOGLOBIN 30.5 PG (27.0-31.0); MEAN CORPUSCULAR HGB CONC 33.7 g/dL (33.0-36.5); MEAN CORPUSCULAR VOLUME 90.5 FL (78-98); MEAN PLATELET VOLUME 10.7 FL (7.4-10.4); MONOCYTES # (AUTO) 0.6 X10'3 (0-0.9); MONOCYTES % (AUTO) 5.8 % (2-12); NEUTROPHILS # (AUTO) 9.3 X10'3 (1.8-7.7); PLATELET COUNT 134 X10'3 (140-440); RED BLOOD COUNT 2.73 X10'6 (4.70-6.10); RED CELL DISTRIBUTION WIDTH 14.4 % (11.5-14.5); WHITE BLOOD COUNT 10.5 X10'3 (4.5-11.0)
[2019-06-01 05:23] LABS: ALANINE AMINOTRANSFERASE 24 U/L (12-78); ALBUMIN/GLOBULIN RATIO 1.2 (1.1-1.5); ALKALINE PHOSPHATASE 57 IU/L (46-116); ANION GAP 11 (8-16); ASPARTATE AMINO TRANSFERASE 108 U/L (10-37); BILIRUBIN,TOTAL 0.4 MG/DL (0.1-1.0); BLOOD UREA NITROGEN 24 MG/DL (7-18); BUN/CREATININE RATIO 17.9 (5.4-32.0); CHLORIDE 108 MMOL/L (99-107); CREATININE 1.34 MG/DL (0.60-1.10); GLUCOSE 149 MG/DL (70-104); MAGNESIUM 2.2 MG/DL (1.5-2.4); PHOSPHORUS 3.9 MG/DL (2.3-4.5); SODIUM 141 MMOL/L (135-145); TOTAL CARBON DIOXIDE 22.4 MMOL/L (24-32); TOTAL PROTEIN 5.5 G/DL (6.4-8.2); eGFR 52 ML/MIN
[2019-06-01 05:37] LABS: PARTIAL THROMBOPLASTIN TIME 25 SECONDS (22-32)
[2019-06-01] MEDS: potassium Cl 20mEq/100mL bag 100 ML IV PRN (06:07)
--- NOTE | 2019-06-01 06:16 | NUR ---
Problems reprioritized. Patient report given, questions answered & plan of care reviewed with Iman/Nery RNs.
--- NOTE | 2019-06-01 06:17 | NUR ---
Patient in room ICU 2040. I have received report from Sunita MARY and had the opportunity to ask questions and assume patient care. Addendum: 06/01/19 at 0618 by Iman Valverde RN Amended: Links added.
[2019-06-01] MEDS: mupirocin 2% nasal ointment 1gm UD NS SCH ×2 (07:00→20:31)
[2019-06-01] MEDS: docusate sod 100mg capsule PO SCH ×2 (07:00→20:31)
[2019-06-01] MEDS: gabapentin 300mg capsule PO SCH ×3 (07:00→20:30)
[2019-06-01] MEDS: buPROPion SR 150mg tablet PO SCH (07:03)
[2019-06-01] MEDS: VANCOMYCIN 1gm/H2O 200ml PB 200 ML IV SCH ×2 (07:38→20:31)
--- NOTE | 2019-06-01 07:43 | NUR ---
Dr. Martinez here. Updated on pt's status. Orders received to remove lines. Pt. pleasantly confused and impulsive. Requires close supervision to remain safe as far as sternal precautions and lines are concerned.
[2019-06-01] MEDS: allopurinol 300 MG tablet PEG SCH (07:57)
[2019-06-01] MEDS: primidone 50mg tablet PO SCH (07:57)
[2019-06-01] MEDS: carVEDilol 12.5mg tablet PO SCH ×2 (07:59→20:30)
[2019-06-01] MEDS ORDERED: metoprolol tartrate 12.5mg (1/2 tablet) PO SCH (08:00)
[2019-06-01] MEDS: aspirin 81mg tablet.DR PO SCH (08:00)
[2019-06-01] MEDS ORDERED: atorvastatin 10mg tablet PO SCH (08:00)
[2019-06-01] MEDS ORDERED: aspirin 325mg tablet, delayed-release (Ecotrin) PO SCH (08:00)
[2019-06-01] MEDS: insulin glargine (Lantus) pen - multi-dose SQ SCH (08:05)
[2019-06-01] MEDS: insulin Lispro (HumaLOG) vial - multi-dose SQ SCH ×5 (08:51→20:43)
--- NOTE | 2019-06-01 10:43 | NUR ---
Potassium and Magnesium replaced per protocol/Dr. Martinez's orders.
--- NOTE | 2019-06-01 12:59 | NUR ---
Pt. sitting in chair. at bedside. Denies pain. VSS. Call light in reach.
--- NOTE | 2019-06-01 18:20 | NUR ---
Patient in room ICU 2040. I have received report from Nery and Iman RNs and had the opportunity to ask questions and assume patient care. Patient sitting up in chair eating dinner, in no apparent distress. Vital WNL. Will continue to monitor patient.
[2019-06-01] MEDS: tamsulosin 0.4mg capsule PO SCH (20:30)
[2019-06-01] MEDS: duloxetine 30mg CAPSULE.DR PO SCH (20:30)
[2019-06-01] MEDS ORDERED: lisinopril 10 MG tablet PO SCH (21:00)
[2019-06-02] VITALS (20 sets, daily range): BP systolic 101–169; BP diastolic 56–94
[2019-06-02] MEDS: ceFAZolin 1GM/D5W- ADD-VANTAGE 50 ML IV SCH (00:32)
[2019-06-02 03:19] LABS: BASOPHILS % (AUTO) 0.1 % (0-1); EOSINOPHILS % (AUTO) 0 % (0-6); HEMOGLOBIN 8.3 g/dl (14.0-17.9); LYMPHOCYTES # (AUTO) 0.9 X10'3 (1.1-4.8); LYMPHOCYTES % (AUTO) 7.2 % (21-51); MEAN CORPUSCULAR HEMOGLOBIN 30.3 PG (27.0-31.0); MEAN CORPUSCULAR HGB CONC 33.2 g/dL (33.0-36.5); MEAN CORPUSCULAR VOLUME 91.3 FL (78-98); MEAN PLATELET VOLUME 10.6 FL (7.4-10.4); MONOCYTES # (AUTO) 1.1 X10'3 (0-0.9); MONOCYTES % (AUTO) 8.3 % (2-12); NEUTROPHILS # (AUTO) 10.7 X10'3 (1.8-7.7); NEUTROPHILS % (AUTO) 84.4 % (42-75); PLATELET COUNT 119 X10'3 (140-440); RED BLOOD COUNT 2.74 X10'6 (4.70-6.10); RED CELL DISTRIBUTION WIDTH 14.7 % (11.5-14.5); WHITE BLOOD COUNT 12.7 X10'3 (4.5-11.0)
[2019-06-02 03:35] LABS: ALBUMIN 2.8 G/DL (3.4-5.0); ANION GAP 8 (8-16); BLOOD UREA NITROGEN 29 MG/DL (7-18); CHLORIDE 106 MMOL/L (99-107); CREATININE 1.26 MG/DL (0.60-1.10); GLUCOSE 198 MG/DL (70-104); MAGNESIUM 2.3 MG/DL (1.5-2.4); PHOSPHORUS 2.7 MG/DL (2.3-4.5); POTASSIUM 4.3 MMOL/L (3.5-5.1); SODIUM 138 MMOL/L (135-145); TOTAL CARBON DIOXIDE 24.2 MMOL/L (24-32); eGFR 56 ML/MIN
--- NOTE | 2019-06-02 06:00 | NUR ---
Patient in room ICU 2040. I have received report from TYRA Dorsey and had the opportunity to ask questions and assume patient care.
--- NOTE | 2019-06-02 06:34 | NUR ---
Problems reprioritized. Patient report given, questions answered & plan of care reviewed with Sandrine MARY.
[2019-06-02] MEDS ORDERED: magnesium 4gm in 100ml NS 100 ML IV PRN (08:30)
[2019-06-02] MEDS ORDERED: potassium Cl 20mEq/100mL bag 100 ML IV PRN (08:30)
[2019-06-02] MEDS: mupirocin 2% nasal ointment 1gm UD NS SCH (08:33)
[2019-06-02] MEDS: allopurinol 300 MG tablet PEG SCH (08:33)
[2019-06-02] MEDS: pantoprazole 40mg Tablet.DR PO SCH (08:33)
[2019-06-02] MEDS: aspirin 81mg tablet.DR PO SCH (08:34)
[2019-06-02] MEDS: docusate sod 100mg capsule PO SCH ×2 (08:34→20:00)
[2019-06-02] MEDS: carvedilol 6.25mg tablet PO SCH ×2 (08:34→21:03)
[2019-06-02] MEDS: primidone 50mg tablet PO SCH (08:36)
[2019-06-02] MEDS: buPROPion SR 150mg tablet PO SCH (08:36)
[2019-06-02] MEDS: gabapentin 300mg capsule PO SCH (08:37)
[2019-06-02] MEDS ORDERED: furosemide 40mg/4ml inj IV ONE (08:50)
[2019-06-02] MEDS: insulin glargine (Lantus) pen - multi-dose SQ SCH (08:51)
[2019-06-02] MEDS: insulin Lispro (HumaLOG) vial - multi-dose SQ SCH ×2 (08:54→14:00)
--- NOTE | 2019-06-02 09:00 | NUR ---
KATALINA Izagiurre pulled out chest tube around 0900. Pt tolerated procedure well.
--- NOTE | 2019-06-02 15:30 | NUR ---
Problems reprioritized. Patient report given, questions answered & plan of care reviewed with TYRA Dickerson.
--- NOTE | 2019-06-02 15:55 | NUR ---
Pulled Severino cath, pulled RIJ, pt tolerated both procedures well.
--- NOTE | 2019-06-02 16:20 | NUR ---
Pt transferred to ACCE via at 1620, all personal belongings were sent to [facility] with pt. Pt needed max assist during transferring from chair to due to unstable gait, pt advised that he is very tired.
--- NOTE | 2019-06-02 19:06 | NUR ---
patient just got his food tray. We will check his blood sugar at 2100 and give the nutritional correctional insulin if need. patient is alert, oriented x4.
[2019-06-02] MEDS ORDERED: lisinopril 10 MG tablet PO SCH (21:00)
[2019-06-02] MEDS: duloxetine 30mg CAPSULE.DR PO SCH (21:02)
[2019-06-02] MEDS: magnesium Cl slow-release 64mg tablet PO SCH (21:02)
[2019-06-02] MEDS: potassium Cl 20 mEq SR tablet PO SCH (21:02)
[2019-06-02] MEDS: atorvastatin 10mg tablet PO SCH (21:03)
[2019-06-02] MEDS: tamsulosin 0.4mg capsule PO SCH (21:03)
[2019-06-02] MEDS: lisinopril 20mg tablet PO SCH (21:04)
[2019-06-03 02:00] VITALS: BP 123/66
--- NOTE | 2019-06-03 05:30 | NUR ---
Called Dr. Martinez regarding the patient's hearth rhythm change from Sinus Rhythm to A Fib. He ordered Amiodarone without loading dose. No other orders were given at this time.
[2019-06-03] MEDS: amiodarone/D5 360MG/200ML BAG 200 ML IV SCH ×4 (05:54→19:54)
[2019-06-03 06:00] VITALS: BP 127/70
--- NOTE | 2019-06-03 06:28 | NUR ---
Problems reprioritized. Patient report given Bella, questions answered & plan of care reviewed with .
--- NOTE | 2019-06-03 06:29 | NUR ---
Patient in room MED 307. I have received report from TYRA Bryan and had the opportunity to ask questions and assume patient care.
[2019-06-03 07:05] LABS: BASOPHILS % (AUTO) 0.3 % (0-1); EOSINOPHILS # (AUTO) 0.1 X10'3 (0-0.9); EOSINOPHILS % (AUTO) 1.1 % (0-6); HEMATOCRIT 26.3 % (42.0-52.0); HEMOGLOBIN 8.9 g/dl (14.0-17.9); LYMPHOCYTES # (AUTO) 1.8 X10'3 (1.1-4.8); LYMPHOCYTES % (AUTO) 16.7 % (21-51); MEAN CORPUSCULAR HGB CONC 33.7 g/dL (33.0-36.5); MEAN CORPUSCULAR VOLUME 91.8 FL (78-98); MEAN PLATELET VOLUME 11.2 FL (7.4-10.4); MONOCYTES % (AUTO) 9.2 % (2-12); NEUTROPHILS # (AUTO) 7.9 X10'3 (1.8-7.7); NEUTROPHILS % (AUTO) 72.7 % (42-75); PLATELET COUNT 121 X10'3 (140-440); RED BLOOD COUNT 2.87 X10'6 (4.70-6.10); RED CELL DISTRIBUTION WIDTH 14.1 % (11.5-14.5); WHITE BLOOD COUNT 10.8 X10'3 (4.5-11.0)
[2019-06-03 07:08] LABS: ALBUMIN 2.7 G/DL (3.4-5.0); ANION GAP 6 (8-16); BLOOD UREA NITROGEN 31 MG/DL (7-18); BUN/CREATININE RATIO 25.6 (5.4-32.0); CALCIUM 8.2 MG/DL (8.5-10.1); CHLORIDE 105 MMOL/L (99-107); CREATININE 1.21 MG/DL (0.60-1.10); GLUCOSE 198 MG/DL (70-104); POTASSIUM 3.7 MMOL/L (3.5-5.1); SODIUM 136 MMOL/L (135-145); TOTAL CARBON DIOXIDE 25.2 MMOL/L (24-32); eGFR 59 ML/MIN
[2019-06-03] MEDS: pantoprazole 40mg Tablet.DR PO SCH (07:50)
[2019-06-03] MEDS: magnesium Cl slow-release 64mg tablet PO SCH ×2 (07:50→19:21)
[2019-06-03] MEDS: aspirin 81mg tablet.DR PO SCH (07:50)
[2019-06-03] MEDS: buPROPion SR 150mg tablet PO SCH (07:50)
[2019-06-03] MEDS: carvedilol 6.25mg tablet PO SCH ×2 (07:50→21:42)
[2019-06-03] MEDS: docusate sod 100mg capsule PO SCH ×2 (07:51→19:21)
[2019-06-03] MEDS: allopurinol 300 MG tablet PEG SCH (07:51)
[2019-06-03] MEDS: potassium Cl 20 mEq SR tablet PO SCH ×2 (07:51→19:21)
[2019-06-03] MEDS: insulin glargine (Lantus) pen - multi-dose SQ SCH (07:59)
[2019-06-03] MEDS: insulin Lispro (HumaLOG) vial - multi-dose SQ SCH ×3 (08:10→19:52)
[2019-06-03 11:00] VITALS: BP 102/54
--- NOTE | 2019-06-03 14:28 | NUR ---
DM/CABG Consults: Pt s/p CABG x5 hx T2DM A1C 7.2. Pt seen by RD for written/verbal CABG/DM eds w/ RD contact information provided. Pt PO 100% carb controlled meals meeting needs. Declines additional proteins at this time. LBM 06/02. Pt does request ham at breakfasts since dislikes other proteins; dietary notified. Will continue to monitor. Rec: 1. continue carb controlled diet; honor pt food preferences 2. routine bowel care 3. wt per rx Addendum: 06/03/19 at [address] Amended: Links added.
[2019-06-03 15:00] VITALS: BP 99/65
[2019-06-03] MEDS: primidone 50mg tablet PO SCH (17:48)
[2019-06-03 18:00] VITALS: BP 94/58
[2019-06-03] MEDS ORDERED: amiodarone 150mg/dext, iso-os 100 ML IV ONE (18:35)
--- NOTE | 2019-06-03 18:57 | NUR ---
Patient in room MED 307. I have received report from Gisselle Cuevas and had the opportunity to ask questions and assume patient care.
[2019-06-03] MEDS: atorvastatin 10mg tablet PO SCH (21:39)
[2019-06-03] MEDS: lisinopril 20mg tablet PO SCH (21:41)
[2019-06-03] MEDS: tamsulosin 0.4mg capsule PO SCH (21:41)
[2019-06-03] MEDS: duloxetine 30mg CAPSULE.DR PO SCH (21:42)
[2019-06-03 22:00] VITALS: BP 110/71
[2019-06-04] VITALS (7 sets, daily range): BP systolic 95–142; BP diastolic 57–77
[2019-06-04 02:23] LABS: BASOPHILS % (AUTO) 0.2 % (0-1); EOSINOPHILS # (AUTO) 0.3 X10'3 (0-0.9); EOSINOPHILS % (AUTO) 3.6 % (0-6); HEMATOCRIT 26.6 % (42.0-52.0); HEMOGLOBIN 8.9 g/dl (14.0-17.9); LYMPHOCYTES % (AUTO) 23.1 % (21-51); MEAN CORPUSCULAR HEMOGLOBIN 30.6 PG (27.0-31.0); MEAN CORPUSCULAR HGB CONC 33.4 g/dL (33.0-36.5); MEAN CORPUSCULAR VOLUME 91.5 FL (78-98); MEAN PLATELET VOLUME 10.2 FL (7.4-10.4); MONOCYTES # (AUTO) 0.8 X10'3 (0-0.9); MONOCYTES % (AUTO) 9.3 % (2-12); NEUTROPHILS # (AUTO) 5.5 X10'3 (1.8-7.7); NEUTROPHILS % (AUTO) 63.8 % (42-75); PLATELET COUNT 137 X10'3 (140-440); RED CELL DISTRIBUTION WIDTH 14.3 % (11.5-14.5); WHITE BLOOD COUNT 8.6 X10'3 (4.5-11.0)
[2019-06-04 02:32] LABS: ALBUMIN 2.4 G/DL (3.4-5.0); ANION GAP 6 (8-16); BLOOD UREA NITROGEN 40 MG/DL (7-18); BUN/CREATININE RATIO 28.4 (5.4-32.0); CALCIUM 8.4 MG/DL (8.5-10.1); CHLORIDE 107 MMOL/L (99-107); CREATININE 1.41 MG/DL (0.60-1.10); GLUCOSE 86 MG/DL (70-104); POTASSIUM 3.5 MMOL/L (3.5-5.1); SODIUM 139 MMOL/L (135-145); TOTAL CARBON DIOXIDE 25.8 MMOL/L (24-32); eGFR 49 ML/MIN
[2019-06-04 03:22] LABS: MAGNESIUM 2.2 MG/DL (1.5-2.4)
[2019-06-04] MEDS: potassium Cl 20 mEq SR tablet PO PRN ×3 (05:33→17:23)
--- NOTE | 2019-06-04 06:26 | NUR ---
Problems reprioritized. Patient report given, questions answered & plan of care reviewed with
--- NOTE | 2019-06-04 06:27 | NUR ---
Patient in room MED 307. I have received report from TYRA Moore and had the opportunity to ask questions and assume patient care.
[2019-06-04] MEDS: buPROPion SR 150mg tablet PO SCH (08:05)
[2019-06-04] MEDS: aspirin 81mg tablet.DR PO SCH (08:05)
[2019-06-04] MEDS: magnesium Cl slow-release 64mg tablet PO SCH ×2 (08:05→20:00)
[2019-06-04] MEDS: pantoprazole 40mg Tablet.DR PO SCH (08:05)
[2019-06-04] MEDS: amiodarone 200mg tablet PO SCH ×2 (08:06→21:09)
[2019-06-04] MEDS: allopurinol 300 MG tablet PEG SCH (08:06)
[2019-06-04] MEDS: potassium Cl 20 mEq SR tablet PO SCH ×2 (08:06→21:55)
[2019-06-04] MEDS: docusate sod 100mg capsule PO SCH ×2 (08:06→21:09)
[2019-06-04] MEDS: carvedilol 6.25mg tablet PO SCH ×2 (08:07→21:09)
[2019-06-04] MEDS: insulin glargine (Lantus) pen - multi-dose SQ SCH (08:21)
[2019-06-04] MEDS: insulin Lispro (HumaLOG) vial - multi-dose SQ SCH ×3 (08:25→18:16)
[2019-06-04] MEDS: primidone 50mg tablet PO SCH (09:28)
[2019-06-04] MEDS: magnesium 2GM in 50ml NS 50 ML IV PRN (13:33)
--- NOTE | 2019-06-04 18:43 | NUR ---
Problems reprioritized. Patient report given, questions answered & plan of care reviewed with TYRA Moore.
--- NOTE | 2019-06-04 18:50 | NUR ---
Patient in room MED 307. I have received report from Char MARY and had the opportunity to ask questions and assume patient care.
[2019-06-04] MEDS: tamsulosin 0.4mg capsule PO SCH (21:08)
[2019-06-04] MEDS: atorvastatin 10mg tablet PO SCH (21:09)
[2019-06-04] MEDS: lisinopril 20mg tablet PO SCH (21:09)
[2019-06-04] MEDS: duloxetine 30mg CAPSULE.DR PO SCH (21:09)
[2019-06-05 02:00] VITALS: BP 128/75
[2019-06-05 06:00] VITALS: BP 122/69
[2019-06-05 06:29] LABS: ALBUMIN 2.2 G/DL (3.4-5.0); ANION GAP 9 (8-16); BLOOD UREA NITROGEN 35 MG/DL (7-18); BUN/CREATININE RATIO 26.5 (5.4-32.0); CHLORIDE 108 MMOL/L (99-107); CREATININE 1.32 MG/DL (0.60-1.10); GLUCOSE 130 MG/DL (70-104); POTASSIUM 4.1 MMOL/L (3.5-5.1); SODIUM 140 MMOL/L (135-145); TOTAL CARBON DIOXIDE 23.2 MMOL/L (24-32); eGFR 53 ML/MIN
--- NOTE | 2019-06-05 06:34 | NUR ---
Problems reprioritized. Patient report given, questions answered & plan of care reviewed with Gaurav lopes.
[2019-06-05 06:37] LABS: BASOPHILS % (AUTO) 0.2 % (0-1); EOSINOPHILS # (AUTO) 0.3 X10'3 (0-0.9); EOSINOPHILS % (AUTO) 4.3 % (0-6); HEMATOCRIT 24.2 % (42.0-52.0); HEMOGLOBIN 8.1 g/dl (14.0-17.9); LYMPHOCYTES # (AUTO) 1.5 X10'3 (1.1-4.8); LYMPHOCYTES % (AUTO) 20.5 % (21-51); MEAN CORPUSCULAR HEMOGLOBIN 30.8 PG (27.0-31.0); MEAN CORPUSCULAR HGB CONC 33.6 g/dL (33.0-36.5); MEAN CORPUSCULAR VOLUME 91.6 FL (78-98); MEAN PLATELET VOLUME 10.1 FL (7.4-10.4); MONOCYTES # (AUTO) 0.6 X10'3 (0-0.9); MONOCYTES % (AUTO) 8.9 % (2-12); NEUTROPHILS # (AUTO) 4.7 X10'3 (1.8-7.7); NEUTROPHILS % (AUTO) 66.1 % (42-75); PLATELET COUNT 153 X10'3 (140-440); RED BLOOD COUNT 2.64 X10'6 (4.70-6.10); RED CELL DISTRIBUTION WIDTH 14.1 % (11.5-14.5); WHITE BLOOD COUNT 7.1 X10'3 (4.5-11.0)
--- NOTE | 2019-06-05 07:01 | NUR ---
Patient in room MED 307. I have received report from TYRA Moore and had the opportunity to ask questions and assume patient care.
[2019-06-05] MEDS: docusate sod 100mg capsule PO SCH ×2 (08:00→20:00)
--- NOTE | 2019-06-05 08:43 | NUR ---
case management paged: [phone]: Rohit - [facility] transfer orders/TMS signed/ready to fax to [facility]
[2019-06-05] MEDS: potassium Cl 20 mEq SR tablet PO SCH ×2 (08:59→20:29)
[2019-06-05] MEDS: amiodarone 200mg tablet PO SCH ×2 (08:59→20:30)
[2019-06-05] MEDS: magnesium Cl slow-release 64mg tablet PO SCH ×2 (08:59→20:30)
[2019-06-05] MEDS: buPROPion SR 150mg tablet PO SCH (09:00)
[2019-06-05] MEDS: pantoprazole 40mg Tablet.DR PO SCH (09:00)
[2019-06-05] MEDS: carvedilol 6.25mg tablet PO SCH ×2 (09:01→20:29)
[2019-06-05] MEDS: allopurinol 300 MG tablet PEG SCH (09:01)
[2019-06-05] MEDS: aspirin 81mg tablet.DR PO SCH (09:01)
[2019-06-05] MEDS: primidone 50mg tablet PO SCH (09:04)
[2019-06-05] MEDS: insulin Lispro (HumaLOG) vial - multi-dose SQ SCH ×3 (09:08→18:21)
[2019-06-05] MEDS: insulin glargine (Lantus) pen - multi-dose SQ SCH (09:09)
[2019-06-05] MEDS ORDERED: furosemide 40mg/4ml inj IV ONE (10:50)
[2019-06-05 11:00] VITALS: BP 135/73
[2019-06-05] MEDS: potassium Cl 20 mEq SR tablet PO PRN (12:07)
--- NOTE | 2019-06-05 15:05 | NUR ---
PT told RN pt. was sweating profusely. RN checked his blood sugar and it was 202. pt. looked diaphoretic and told the RN that he was feeling nauseas. RN went and got him zofran and pt. told them that he wasn't nauseas anymore and was feeling much better. Addendum: 06/05/19 at 1510 by Snow Gann RN no zofran given at this time.
[2019-06-05 16:00] VITALS: BP 115/61
[2019-06-05 18:00] VITALS: BP 120/63
--- NOTE | 2019-06-05 18:32 | NUR ---
Problems reprioritized. Patient report given, questions answered & plan of care reviewed with TYRA Moore.
[2019-06-05] MEDS: lisinopril 20mg tablet PO SCH (20:29)
[2019-06-05] MEDS: atorvastatin 10mg tablet PO SCH (20:29)
[2019-06-05] MEDS: tamsulosin 0.4mg capsule PO SCH (20:29)
[2019-06-05] MEDS: duloxetine 30mg CAPSULE.DR PO SCH (20:30)
[2019-06-05] MEDS: magnesium 2GM in 50ml NS 50 ML IV PRN (20:30)
[2019-06-05 22:00] VITALS: BP 123/71
[2019-06-06 02:00] VITALS: BP 132/75
[2019-06-06 06:00] VITALS: BP 129/77
--- NOTE | 2019-06-06 06:17 | NUR ---
Problems reprioritized. Patient report given, questions answered & plan of care reviewed with Tracie Cuevas.
[2019-06-06 06:20] LABS: ALBUMIN 2.3 G/DL (3.4-5.0); ANION GAP 8 (8-16); BASOPHILS % (AUTO) 0.5 % (0-1); BLOOD UREA NITROGEN 26 MG/DL (7-18); BUN/CREATININE RATIO 19.8 (5.4-32.0); CALCIUM 7.9 MG/DL (8.5-10.1); CHLORIDE 108 MMOL/L (99-107); CREATININE 1.31 MG/DL (0.60-1.10); EOSINOPHILS # (AUTO) 0.3 X10'3 (0-0.9); EOSINOPHILS % (AUTO) 3.8 % (0-6); GLUCOSE 126 MG/DL (70-104); HEMATOCRIT 25.1 % (42.0-52.0); HEMOGLOBIN 8.6 g/dl (14.0-17.9); LYMPHOCYTES # (AUTO) 1.7 X10'3 (1.1-4.8); LYMPHOCYTES % (AUTO) 23.8 % (21-51); MEAN CORPUSCULAR HEMOGLOBIN 30.9 PG (27.0-31.0); MEAN CORPUSCULAR HGB CONC 34.2 g/dL (33.0-36.5); MEAN CORPUSCULAR VOLUME 90.3 FL (78-98); MEAN PLATELET VOLUME 9.6 FL (7.4-10.4); MONOCYTES # (AUTO) 0.7 X10'3 (0-0.9); MONOCYTES % (AUTO) 9.5 % (2-12); NEUTROPHILS # (AUTO) 4.4 X10'3 (1.8-7.7); NEUTROPHILS % (AUTO) 62.4 % (42-75); PLATELET COUNT 166 X10'3 (140-440); RED BLOOD COUNT 2.77 X10'6 (4.70-6.10); SODIUM 140 MMOL/L (135-145); TOTAL CARBON DIOXIDE 24.1 MMOL/L (24-32); eGFR 53 ML/MIN
[2019-06-06] MEDS: carvedilol 6.25mg tablet PO SCH (07:23)
[2019-06-06] MEDS: buPROPion SR 150mg tablet PO SCH (07:23)
[2019-06-06] MEDS: pantoprazole 40mg Tablet.DR PO SCH (07:23)
[2019-06-06] MEDS: magnesium Cl slow-release 64mg tablet PO SCH (07:23)
[2019-06-06] MEDS: aspirin 81mg tablet.DR PO SCH (07:23)
[2019-06-06] MEDS: docusate sod 100mg capsule PO SCH (07:23)
[2019-06-06] MEDS: allopurinol 300 MG tablet PEG SCH (07:23)
[2019-06-06] MEDS: potassium Cl 20 mEq SR tablet PO SCH (07:23)
[2019-06-06] MEDS: primidone 50mg tablet PO SCH (07:24)
[2019-06-06] MEDS: amiodarone 200mg tablet PO SCH (07:24)
[2019-06-06 07:35] LABS: MAGNESIUM 2.2 MG/DL (1.5-2.4)
[2019-06-06] MEDS: insulin Lispro (HumaLOG) vial - multi-dose SQ SCH (08:34)
[2019-06-06] MEDS: insulin glargine (Lantus) pen - multi-dose SQ SCH (08:50)
[2019-06-06 11:00] VITALS: BP 108/60
--- NOTE | 2019-06-06 11:30 | NUR ---
REMOVED PATIENT'S IV, GETTING READY TO BE PICKED [facility]. PATIENT'S IS AT BEDSIDE AND AWARE OF DESTINATION. PATIENT DENIES ANY QUESTIONS OR CONCERNS AND VERBALIZES READINESS TO GO.
== END 2019-06-06 12:00 | DRG 235 ==
LOC: PAS IN 05:36 → ICU 2S 07:09 → EDSTATUS 07:30 → MED 3N 06-02 16:17
PROVIDERS: ADMIT Thoracic Surgery (Cardiothoracic Vascular Surgery); ATTEND Thoracic Surgery (Cardiothoracic Vascular Surgery)
PROC: 021309W Bypass Coronary Artery, Four or More Arteries from Aorta with Autologous Venous Tissue, Open Approach (ICD-10-PCS; 2019-05-31)
PROC: 06BP4ZZ Excision of Right Saphenous Vein, Percutaneous Endoscopic Approach (ICD-10-PCS; 2019-05-31)
PROC: 30233M1 Transfusion of Nonautologous Plasma Cryoprecipitate into Peripheral Vein, Percutaneous Approach (ICD-10-PCS; 2019-05-31)
PROC: 02HQ32Z Insertion of Monitoring Device into Right Pulmonary Artery, Percutaneous Approach (ICD-10-PCS; 2019-05-31)
PROC: 30233R1 Transfusion of Nonautologous Platelets into Peripheral Vein, Percutaneous Approach (ICD-10-PCS; 2019-05-31)
PROC: 4A133B3 Monitoring of Arterial Pressure, Pulmonary, Percutaneous Approach (ICD-10-PCS; 2019-05-31)
PROC: 4A1239Z Monitoring of Cardiac Output, Percutaneous Approach (ICD-10-PCS; 2019-05-31)
PROC: 02HV33Z Insertion of Infusion Device into Superior Vena Cava, Percutaneous Approach (ICD-10-PCS; 2019-05-31)
PROC: B548ZZA Ultrasonography of Superior Vena Cava, Guidance (ICD-10-PCS; 2019-05-31)
PROC: B24BZZ4 Ultrasonography of Heart with Aorta, Transesophageal (ICD-10-PCS; 2019-05-31)
PROC: 5A1221Z Performance of Cardiac Output, Continuous (ICD-10-PCS; 2019-05-31)
PROC: 02100Z9 Bypass Coronary Artery, One Artery from Left Internal Mammary, Open Approach (ICD-10-PCS; principal; 2019-05-31 06:55)
DX: I25.119 Atherosclerotic heart disease of native coronary artery with unspecified angina pectoris (principal); I50.33 Acute on chronic diastolic (congestive) heart failure; D62 Acute posthemorrhagic anemia; I25.2 Old myocardial infarction; E78.5 Hyperlipidemia, unspecified; E11.22 Type 2 diabetes mellitus with diabetic chronic kidney disease; D45 Polycythemia vera; I12.9 Hypertensive chronic kidney disease with stage 1 through stage 4 chronic kidney disease, or unspecified chronic kidney disease; J44.9 Chronic obstructive pulmonary disease, unspecified; N18.9 Chronic kidney disease, unspecified; M19.90 Unspecified osteoarthritis, unspecified site; I48.0 Paroxysmal atrial fibrillation; R94.39 Abnormal result of other cardiovascular function study; G47.33 Obstructive sleep apnea (adult) (pediatric); E66.9 Obesity, unspecified; Z87.891 Personal history of nicotine dependence; Z98.61 Coronary angioplasty status; Z80.42 Family history of malignant neoplasm of prostate; Z82.3 Family history of stroke; Z83.3 Family history of diabetes mellitus; Z86.73 Personal history of transient ischemic attack (TIA), and cerebral infarction without residual deficits; Z68.30 Body mass index [BMI] 30.0-30.9, adult
CPT/HCPCS: 0232T; 93312; 93325; 36415; 36600; 71045; 80048; 80053; 82330; 82435; 82803; 82947; 82948; 83036; 83735; 84100; 84132; 84295; 85018; 85025; 85027; 85347; 85384; 85576; 85610; 85730; 86885; 86900; 86901; 86920; 87081; 93005; 94002; 94667; 94668; 94760; 97116; 97161; 97530; A4618; A6258; A6402; A6449; A7000; A7048; C1713; C1751; C9113; G0378; GO378; J0282; J0690; J1265; J1644; J1815; J1940; J2001; J2060; J2250; J2370; J2405; J2440; J2597; J2704; J2720; J2795; J3370; J3475; J3480; J3490; J7030; J7040; J7050; J7060; J7120; P9012; P9035; P9045; P9047